=== PATIENT | male | born 1985 | race Caucasian/White ===

== ENCOUNTER 2020-04-09 14:48 | Emergency (ER) | payer MEDICAID ==
[~2020-04-09] VITALS: Ht 177.8 cm; Wt 88.5 kg
[2020-04-09 15:11] VITALS: BP 127/91
[2020-04-09 16:05] LABS: BARBITURATE, URINE NEGATIVE ng/ml (NEG <=200); BENZODIAZEPINE, URINE POSITIVE ng/mL (NEG <=200); CANNABINOID, URINE NEGATIVE ng/mL (NEG <=50); COCAINE, URINE NEGATIVE ng/mL (NEG <=300); OPIATE, URINE NEGATIVE ng/mL (NEG <=2000); PHENCYCLIDINE SCREEN,URINE NEGATIVE ng/mL (NEG <=25)
[2020-04-09 18:45] VITALS: BP 132/85
== END 2020-04-09 18:46 | disposition home or self-care (01) ==
LOC: MED 14:48
DX: F32.9 Major depressive disorder, single episode, unspecified (principal); K21.9 Gastro-esophageal reflux disease without esophagitis; I10 Essential (primary) hypertension; F41.9 Anxiety disorder, unspecified; Z90.49 Acquired absence of other specified parts of digestive tract
CPT/HCPCS: 80305; 99283